=== PATIENT | female | born 1990 | race American Indian/Alaskan Native ===

== ENCOUNTER 2017-06-03 11:26 | Day surgery (SDC) | payer OTHER ==
[2017-05-31 09:14] VITALS: BMI 31.8
[2017-06-03] MEDS ORDERED: Propofol 10 mg/ml Inj (20 ML) ONE ×2 (12:51→13:09)
[2017-06-03] MEDS ORDERED: ePHEDrine 50 mg/ml Inj ONE (13:07)
[2017-06-03 13:46] VITALS: O2SAT 98
[2017-06-03] MEDS ORDERED: Sodium Chloride 0.9% 1,000 ML IV SCH (14:15)
[2017-06-03 14:37] VITALS: BP 118/53; PULSE 65; RESP 16; TEMP 98.5
== END 2017-06-03 14:53 | disposition home or self-care (01) ==
LOC: ENDO 11:26
PROVIDERS: ATTEND Internal Medicine Gastroenterology
DX: K29.50 Unspecified chronic gastritis without bleeding (principal); K44.9 Diaphragmatic hernia without obstruction or gangrene
CPT/HCPCS: 43239; 84703; 88305; 88312; 88342; J2001; J2704; J3010; J7040 ×2

== ENCOUNTER 2018-02-16 17:07 | Inpatient (IN) | payer OTHER ==
[2018-02-16] MEDS ORDERED: Dextrose 50% SYRINGE Inj (50 ml) IVP ONE (17:33)
--- NOTE | 2018-02-16 17:35 | ED PDOC ---
Arrival/HPI - General Time Seen by Provider: 02/16/18 17:20 Historian: Patient, Family - History of Present Illness Narrative History of Present Illness (Text): 02/16/18 17:30 A 27 year old female, whose past medical history includes pulmonary hypertension , presents to the emergency department complaining of dizziness. Patient reports waking up today in normal state. States not eating breakfast this morning, however after eating lunch today, patient began experiencing dizziness suddenly. Symptom worsens with head movement. Notes recently returning from [place] 3 days ago. Also, it is noted patient's blood pressure was found to be low, and patient mentions never having issues with blood pressure. patient mentions taking Prednisone 5 mg daily. Patient's current BP is 114/76. PMD: Dr. Tran Past Medical History - Provider Review Nursing Documentation Reviewed: Yes - Travel History Have you recently traveled outside [place] w/in the past 3 mons?: Yes If Yes, travel location?: [place] - Tetanus Immunization Tetanus Immunization: Unknown - Cardiac Hx Pacemaker: No - Pulmonary Hx Respiratory Disorders: Yes (pulmonary hypertension) Hx Pneumonia: Yes (2 years) Other/Comment: scleraderma lungs - Neurological Hx Paralysis: No - Endocrine/Metabolic Hx Endocrine Disorders: Yes Hx Systemic Lupus Erythematosus: Yes Other/Comment: connective tissue disorder - Hematological/Oncological Hx Blood Transfusions: No - Integumentary Hx Dermatological Disorder: Yes Other/Comment: raynauds syndrome, sjorgen - Musculoskeletal/Rheumatological Hx Musculoskeletal Disorders: Yes (joint pain) - Gastrointestinal Hx Gastrointestinal Disorders: Yes Hx Gastroesophageal Reflux: Yes HX Swallowing Problems: Yes - Psychiatric Hx Emotional Abuse: No Hx Physical Abuse: No Hx Substance Use: No - Past Surgical History Past Surgical History: No Previous - Surgical History Hx Appendectomy: Yes - Anesthesia Hx Anesthesia Reactions: No Hx Malignant Hyperthermia: No - Suicidal Assessment Feels Threatened In Home Enviroment: No Family/Social History - Physician Review Nursing Documentation Reviewed: Yes Family/Social History: Hypertension Smoking Status: Never Smoked Hx Alcohol Use: Yes (SOCIALLY) Hx Substance Use: No Hx Substance Use Treatment: No Allergies/Home Meds Allergies/Adverse Reactions: Allergies No Known Allergies Allergy (Verified 02/16/18 17:18) Home Medications: Home Meds Medication Instructions Recorded Confirmed Hydroxychloroquine Sulfate 400 mg PO DAILY 11/05/14 06/03/17 [Plaquenil] Meloxicam [Mobic] 7.5 mg PO BID PRN 11/05/14 06/03/17 Mycophenolate Mofetil [Cellcept] 500 mg PO TID 01/05/17 06/03/17 Omeprazole 20 mg PO DAILY 01/05/17 06/03/17 Prednisone 5 mg PO DAILY 01/05/17 06/03/17 Fluoxetine HCl [Prozac] 40 mg PO DAILY 05/31/17 06/03/17 Nifedipine [Procardia] 20 mg PO DAILY 05/31/17 06/03/17 Review of Systems - Review of Systems Constitutional: absent: Fatigue, Fevers Eyes: absent: Vision Changes ENT: absent: Hearing Changes Respiratory: absent: SOB, Cough Cardiovascular: absent: Chest Pain Gastrointestinal: absent: Abdominal Pain, Nausea Genitourinary Female: absent: Dysuria, Frequency Musculoskeletal: absent: Back Pain, Neck Pain Skin: absent: Rash Neurological: Dizziness. absent: Headache, Focal Weakness, Gait Changes, Speech Changes, Facial Droop Endocrine: absent: Polyuria Hemo/Lymphatic: absent: Easy Bleeding Psychiatric: absent: Depression Physical Exam - Physical Exam Narrative Physical Exam (Text): Head: Atraumatic. Normocephalic. Eyes: PERRL. EOMI. Conjunctivae are not pale. ENT: Mucous membranes are moist and intact. Oropharynx is clear and symmetric. No edema or exudates. Neck: Supple. Full ROM. No JVD. No lymphadenopathy. Cardiovascular: Regular rate. Regular rhythm. No murmurs, rubs, or gallops. Distal pulses are 2+ and symmetric. Pulmonary/Chest: No evidence of respiratory distress. Clear to auscultation bilaterally. No wheezing, rales or rhonchi. Abdominal: Soft and non-distended. There is no tenderness. No rebound, guarding, or rigidity. No organomegaly. Good bowel sounds. Back: No CVA tenderness. Extremities: No edema. No cyanosis. No clubbing. Full range of motion in all extremities. No calf tenderness. Skin: Skin is warm and dry. No petechiae. No purpura. Neurological: Alert, awake, and oriented to person, place, time, and situation. Normal speech. No facial droop. No pronator drift. No focal weakness. Patient with spinning sensation when rotating head to left or right, improved when staying still. No sensory deficits. Psychiatric: Good eye contact. Normal interaction, affect, and behavior. Vital Signs Reviewed: Yes Vital Signs Temp Pulse Resp BP Pulse Ox 02/16/18 17:39 98.2 F 63 18 114/76 100 Temperature: Afebrile Pulse: Regular Respiratory Rate: Normal Appearance: Positive for: Uncomfortable Pain Distress: Mild Mental Status: Positive for: Alert and Oriented X 3 Finger Stick Blood Glucose: 30 Medical Decision Making ED Course and Treatment: 02/16/18 17:30 Impression: 27 year old female with sudden onset of dizziness. Differential Diagnosis included but are not limited to: Vertigo vs. Hyoglycemia vs. Pulmonary Hypertension Plan: -- EKG -- Chest X-ray -- Labs -- Antivert -- D50 -- Urinalysis -- Reassess and disposition Progress Notes: Patient on intial exam denies fever, denies headache, denies chest pain or shortness of breath. She has hx of raynaud's and pulmonary hypertension, although denies any recent illnesses and states that she felt her typical self this AM and did eat something for lunch. Symptoms described as acute onset, and on exam it is positional. Of note, she is hypoglycemic. She is NOT diabetic. There has been no recent change in her medication, specifically her predniosone. She denies taking any new medication. 02/16/18 19:26 Patient feels less dizzy after being given Antivert. However symptoms continue to persist. Patient received amp of d50. Recheck of blood sugar reads 59. Patient denies taking any insulin, or any diabetic related medications, and has had no change in steroid dose as prescribed. Patient denies any fever/chills. Patient recommended to be admitted based on persistent hypoglycemia. Patient desires to be further monitored in the ER. I have reviewed case with Dr. Tran, patient's PMD. Will continue serial exams in the ED. UTI noted, although patient denies urinary symptoms. She is afebrile. Denies abdominal or back pain. WBC unremarkable. Not tachycardic or hypotensive. 02/16/18 22:15 Re-exam, patient with dizziness, worse with position. Additional antivert ordered. 02/16/18 23:10 Re-exam, positional dizziness persists. No facial droop. No slurred speech. Nasal congestion noted on exam. TMs clear. Lungs clear. No pharyngeal erythema. Will admit for observation, serial exams, D5 .45 ns fluid continued, recommend accuchecks given intermittent hypoglycemia. - Lab Interpretations Lab Results: 02/16/18 18:11 02/16/18 18:11 Lab Results 02/16/18 19:06: POC Glucose (mg/dL) 59 L 02/16/18 18:11: Sodium 141, Potassium 4.1, Chloride 105, Carbon Dioxide 27, Anion Gap 14, BUN 6 L, Creatinine 0.5 L, Est GFR ( Amer) > 60, Est GFR ( Non-Af Amer) > 60, Random Glucose 92, Calcium 9.7, Total Bilirubin 0.2, AST 27, ALT 16, Alkaline Phosphatase 50, Lactate Dehydrogenase 442, Total Creatine Kinase 44, Troponin I < 0.01, Total Protein 7.8, Albumin 4.2, Globulin 3.7, Albumin/Globulin Ratio 1.1 02/16/18 18:11: PT 13.8 H, INR 1.21 H, APTT 34.2 02/16/18 18:11: WBC 6.0 D, RBC 3.93, Hgb 10.3 L, Hct 33.7 L, MCV 85.8, MCH 26.2 , MCHC 30.6 L, RDW 13.7, Plt Count 500 H, MPV 9.2, Gran % 62.5, Lymph % (Auto) 27.3, [place] % (Auto) 8.9 H, Eos % (Auto) 1.3 L, Baso % (Auto) 0.0, Gran # 3.73, Lymph # (Auto) 1.6, [place] # (Auto) 0.5, Eos # (Auto) 0.1, Baso # (Auto) 0.00 02/16/18 18:08: Urine Color Light yellow, Urine Appearance Sl cloudy, Urine pH 7.5, Ur Specific [place] 1.010, Urine Protein Negative, Urine Glucose (UA) Negative, Urine Ketones Negative, Urine Blood Moderate H, Urine Nitrate Negative , Urine Bilirubin Negative, Urine Urobilinogen 0.2, Ur Leukocyte Esterase Small H, Urine RBC 0 - 2, Urine WBC 1 - 3, Ur Epithelial Cells 3 - 4, Urine Bacteria Mod 02/16/18 17:52: POC Glucose (mg/dL) 79 02/16/18 17:18: POC Glucose (mg/dL) 30 L* - RAD Interpretation Radiology Orders: 02/16/18 17:32 CHEST PORTABLE [RAD] Stat - EKG Interpretation EKG Interpretation (Text): EKG at 17:47 normal sinus rhythm rate of [address] elevations Interpreted by ED Physician: Yes Type: 12 lead EKG - Medication Orders Current Medication Orders: Dextrose/Sodium Chloride (Dextrose 5%/0.45% Ns 1000 Ml) 1,000 mls @ 100 mls/hr IV .Q10H AGUSTIN Last Admin: 02/16/18 19:47 Dose: 100 mls/hr eMAR Start Stop Document 02/16/18 19:47 IT (Rec: 02/16/18 19:47 IT [id number]) Intravenous Solution Start Date 02/16/18 Start Time 19:47 Discontinued Medications Dextrose (Dextrose 50% Inj) 50 ml IVP ONCE ONE Stop: 02/16/18 17:34 Last Admin: 02/16/18 18:11 Dose: 50 ml IVP Administration Document 02/16/18 18:11 OCS (Rec: 02/16/18 18:11 OCS [id number]) Charges for Administration # of IVP Administrations 1 Meclizine HCl (Antivert) 25 mg PO ONCE ONE Stop: 02/16/18 17:34 Last Admin: 02/16/18 18:11 Dose: 25 mg Meclizine HCl (Antivert) 25 mg PO ONCE ONE Stop: 02/16/18 22:15 Last Admin: 02/16/18 22:40 Dose: 25 mg - Scribe Statement The provider has reviewed the documentation as recorded by the Conor Palma Provider Scribe Attestation: All medical record entries made by the Conor were at my direction and personally dictated by me. I have reviewed the chart and agree that the record accurately reflects my personal performance of the history, physical exam, medical decision making, and the department course for this patient. I have also personally directed, reviewed, and agree with the discharge instructions and disposition. Disposition/Present on Arrival - Present on Arrival Any Indicators Present on Arrival: Yes History of DVT/PE: No History of Uncontrolled Diabetes: Yes Urinary Catheter: No History Surgical Site Infection Followin - Disposition Have Diagnosis and Disposition been Completed?: Yes Diagnosis: Hypoglycemia, Dizziness, UTI (urinary tract infection), Sinusitis, Vertigo Disposition: HOSPITALIZED Disposition Time: 20:21 Patient Plan: Observation Patient Problems: Current Active Problems Problem Status Onset Dizziness Acute Hypoglycemia Acute Condition: FAIR Referrals: Morales Tran MD [Primary Care Provider] - Follow up with primary
[2018-02-16 17:36] VITALS: BMI 27.6
[2018-02-16 18:25] LABS: EOS # 0.1 (0.0-0.7); EOS % 1.3 % (1.5-5.0); GRAN # 3.73 (1.4-6.5); GRAN % 62.5 % (50.0-68.0); HEMOGLOBIN 10.3 g/dL (12.0-16.0); LYMPH # 1.6 (1.2-3.4); LYMPH % 27.3 % (22.0-35.0); MEAN CELL VOLUME 85.8 fl (80.0-105.0); MEAN CORPUSCULAR HEMOGLOBIN 26.2 pg (25.0-35.0); MEAN CORPUSCULAR HGB CONC 30.6 g/dl (31.0-37.0); MEAN PLATELET VOLUME 9.2 fl (7.0-11.0); MONO # 0.5 (0.1-0.6); MONO % 8.9 % (1.0-6.0); RBC 3.93 10^6/uL (3.5-6.1); RED CELL DISTRIBUTION WIDTH 13.7 % (11.5-14.5)
[2018-02-16 18:28] LABS: PH,URINE 7.5 (4.7-8.0); URINE BILIRUBIN NEGATIVE (NEGATIVE); URINE BLOOD MODERATE (NEGATIVE); URINE GLUCOSE (UA) NEGATIVE (NEGATIVE); URINE LEUKOCYTE ESTERASE SMALL Leu/uL (NEGATIVE); URINE PROTEIN NEGATIVE mg/dL (<30 mg/dL); URINE UROBILINOGEN 0.2 E.U./dL (<1 E.U./dL)
[2018-02-16 18:28] LABS: INR 1.21 (0.93-1.08); PARTIAL THROMBOPLASTIN TIME 34.2 Seconds (25.1-36.5); PROTHROMBIN TIME 13.8 SECONDS (9.4-12.5)
[2018-02-16 18:30] LABS: URINE APPEARANCE SL CLOUDY (CLEAR); URINE COLOR LIGHT YELLOW (YELLOW)
[2018-02-16 18:31] LABS: ALB/GLOB RATIO 1.1 (1.1-1.8); ALBUMIN 4.2 g/dL (3.0-4.8); ALT/SGPT 16 U/L (7-56); AST/SGOT 27 U/L (14-36); BLOOD UREA NITROGEN 6 mg/dL (7-21); CALCIUM 9.7 mg/dL (8.4-10.5); GFR AFRICAN-AMERICAN > 60; GFR NON-AFRICAN AMERICAN > 60
[2018-02-16 18:35] LABS: URINE BACTERIA MOD (NEG); URINE RBC 0 - 2 /hpf (0-2)
[2018-02-16 18:42] LABS: TROPONIN I < 0.01 ng/mL
[2018-02-16] MEDS: Dextrose 5%/0.45% NS 1,000 ML IV SCH (19:47)
[2018-02-16] MEDS ORDERED: Amoxicillin-Clav 875-125 mg Tab PO STA (23:13)
--- NOTE | 2018-02-17 00:50 | CP.PCM.HP ---
<KathleenAdele - Last Filed: 02/17/18 05:13> History of Present Illness - History of Present Illness History of Present Illness: Adele Wang, PGY1, H&P for Dr Flores: CC: dizziness 27 year old female, whose past medical history includes mixed connective tissue disease, SLE, pulmonary hypertension, presents for sudden onset of dizziness that started this afternoon. Pt was at at her desk, sitting, when she suddenly started feeling dizzy, sees "herself spinning," worsened by head position changes. Denies fever, chills, diaphoresis, palpitaitons, confusion, drowsiness , inability to concentrate/incoordination, fatigue, vision changes, headache, nausea, vomiting, hearing loss/changes, tinnitus, abdominal pain, urinary symptoms, alcohol/drug use, tremors, irritability, tachypnea, pallor, hunger. In ED, pt was also found to be hypoglycemic BS 30, given amp D50. Then started on D5 1/2 NS@100. Dizziness resolved after 2 doses of Meclizine. Trop negx1. 12 point ROS obtained and neg, except as per HPI. PMD: Dr. Tran PMH: Raynaud's, Pulm HTN, mixed connective tissue disease, scleroderma of lungs , SLE PSH: appendectomy (2015) All: NKA FH: Grandmother, HTN, DM Mother, RA SH: lives with roommate. 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 Denies alcohol/tobacco/ drug use. Ambulatory by self. Recent travel to [place], returned 3 days ago. No sick contacts. Present on Admission - Present on Admission Any Indicators Present on Admission: No History of DVT/PE: No History of Uncontrolled Diabetes: No Urinary Catheter: No Decubitus Ulcer Present: No Review of Systems - Review of Systems All systems: reviewed and no additional remarkable complaints except Review of Systems: as per HPI Past Patient History - Infectious Disease Hx of Infectious Diseases: None - Tetanus Immunizations Tetanus Immunization: Unknown - Past Medical History & Family History Past Medical History?: Yes - Past Social History Smoking Status: Never Smoked - CARDIAC Hx Pacemaker: No - PULMONARY Hx Respiratory Disorders: Yes (pulmonary hypertension) Hx Pneumonia: Yes (2 years) Other/Comment: scleraderma lungs - NEUROLOGICAL Hx Paralysis: No - ENDOCRINE/METABOLIC Hx Endocrine Disorders: Yes Hx Systemic Lupus Erythematosus: Yes Other/Comment: connective tissue disorder - HEMATOLOGICAL/ONCOLOGICAL Hx Blood Transfusions: No - INTEGUMENTARY Hx Dermatological Problems: Yes Other/Comment: raynauds syndrome, sjorgen - MUSCULOSKELETAL/RHEUMATOLOGICAL Hx Musculoskeletal Disorders: Yes (joint pain) - GASTROINTESTINAL Hx Gastrointestinal Disorders: Yes Hx Gastroesophageal Reflux: Yes HX Swallowing Problems: Yes - PSYCHIATRIC Hx Emotional Abuse: No Hx Physical Abuse: No Hx Substance Use: No - SURGICAL HISTORY Hx Appendectomy: Yes - ANESTHESIA Hx Anesthesia Reactions: No Hx Malignant Hyperthermia: No Meds Allergies/Adverse Reactions: Allergies Allergy/AdvReac Type Severity Reaction Status Date / Time No Known Allergies Allergy Verified 02/16/18 17:18 Physical Exam - Constitutional Appears: Non-toxic, No Acute Distress - Head Exam Head Exam: ATRAUMATIC, NORMOCEPHALIC - Eye Exam Eye Exam: EOMI, Nystagmus, PERRL. absent: Conjunctival injection, Scleral icterus Pupil Exam: NORMAL ACCOMODATION, PERRL. absent: Fixed, Irregular, Miosis, Mydriatic, Unequal Additional comments: Kendrick wiggins pike maneuver positive with spontaneous nystagmus. Annika maneuver performed. - ENT Exam ENT Exam: Mucous Membranes Moist - Neck Exam Neck exam: Positive for: Full Rom Additional comments: + no nystagmus currently noted with position changes - Respiratory Exam Respiratory Exam: Clear to Auscultation Bilateral, NORMAL BREATHING PATTERN. absent: Chest Wall Tenderness, Rales, Rhonchi, Wheezes, Stridor - Cardiovascular Exam Cardiovascular Exam: RRR, +S1, +S2. absent: Systolic Murmur - GI/Abdominal Exam GI & Abdominal Exam: Normal Bowel Sounds, Soft. absent: Distended, Firm, Guarding, Organomegaly, Rebound, Rigid, Tenderness - Extremities Exam Extremities exam: Positive for: normal inspection. Negative for: calf tenderness, pedal edema - Back Exam Back exam: NORMAL INSPECTION - Neurological Exam Neurological exam: Alert, CN II-XII Intact, Normal Gait, Oriented x3, Reflexes Normal - Expanded Neurological Exam Expanded Patient oriented to: person, place, time Cranial nerves: EOM's Intact: Normal, Facial Palsey w/Forehead Movement: Normal , Facial Palsey w/o Forehead Movement: Normal, Facial Sensation: Normal, Gag Reflex: Normal, Nystagmus: Abnormal Right, Abnormal Left, Tongue Deviation: Normal Ataxia: No Cerebellar Function: Finger to Nose: Normal, Heel to [place]: Normal, Romberg: Normal Upper motor neuron: Babinski Sign: Normal, Felipe Neglect: Normal, Pronator Drift : Normal Sensory exam: Lower Extremity 2 Point Discrimination: Normal, Lower Extremity Light Touch: Normal, Lower Extremity Pin Prick: Normal, Upper Extremity Light Touch: Normal, Upper Extremity Pin Prick: Normal, Upper Extremity Temperature: Normal Neuro motor strength exam: Left Upper Extremity: 5, Right Upper Extremity: 5, Left Lower Extremity: 5, Right Lower Extremity: 5 DTR: Achilles Tendon Left: 2+, Achilles Tendon Right: 2+, Bicep Left: 2+, Bicep Right: 2+, Patellar Left: 2+, Patellar Right: 2+, Tricep Left: 2+, Tricep Right : 2+ Coma Scale Eye Opening: SPONTANEOUS Coma Scale Motor Response: OBEYS COMMANDS Coma Scale Verbal: Oriented Coma Scale Total: 15 - Psychiatric Exam Psychiatric exam: Normal Affect, Normal Mood - Skin Skin Exam: Dry, Normal Color, Warm Additional comments: No mottled skin, diaphoresis Results - Vital Signs Recent Vital Signs: Last Vital Signs Temp 98.2 F 02/16/18 17:39 Pulse 63 02/16/18 17:39 Resp 18 02/16/18 17:39 BP 114/76 02/16/18 17:39 Pulse Ox 100 02/16/18 17:39 - Labs Result Diagrams: 02/16/18 18:11 02/16/18 18:11 Assessment & Plan - Assessment and Plan (Free Text) Assessment: 27 year old female with hx of mixed connective tissue disease, SLE, Raynaud's, pulm HTN, presents for dizziness and hypoglycemia: Hypoglycemia: 2/2 medication induced (hydroxychloroquine, prozac) vs inadequate PO intake vs insulinoma vs insulin autoimmune hypoglycemia vs insulin secretagogue, ruled out drugs (pt denies insulin/alcohol use), sepsis - D5 1/2 NS @ 100 - Glucose check ACHS - insulin, proinsulin, C peptide, beta hydroxybutyrate - Endo consult. f/u recs - UA + for infection. Given Rocephin. Dizziness: 2/2 BPPV vs medication induced (hydroxychloroquine, prozac, nifedipine) vs SKI LIFT ATTENDANT lesion (chiari malformation, cerebellar tumor, degenerative disorder) vs autonomic vs orthostatic - Orthostatic VS - Meclizine - Positive Kendrick hallpike. Annika's maneuver done. - Consider vestibulosuppresant medication: Diazepam - Head CT - Neuro c/s. f/u recs. - Consider Vestibular rehab, possibly outpatient - Fall precautions - Neuro check - Hold prozac, hydroxychloroquine) Hx of Mixed connective tissue disease/SLE: - c/w home prednisone 5 mg PO daily - C/w home mycophenolate, meloxicam Hx of Raynaud's/Pulm HTN: - home home nifedipine in setting of dizziness PPX: Pepcid, SCDs Discussed with Dr Flores. - Date & Time Date: 02/17/18 Time: 05:29 <Richard Flores - Last Filed: 02/17/18 06:52> Results - Vital Signs Recent Vital Signs: Last Vital Signs Temp 98.2 F 02/16/18 17:39 Pulse 63 02/16/18 17:39 Resp 18 02/17/18 02:05 BP 114/76 02/16/18 17:39 Pulse Ox 100 02/16/18 17:39 - Labs Result Diagrams: 02/16/18 18:11 02/16/18 18:11 Labs: Laboratory Results - last 24 hr 02/17/18 02/17/18 00:57 06:30 POC Glucose (mg/dL) 137 H 88 Attending/Attestation - Attestation I have personally seen and examined this patient.: Yes I have fully participated in the care of the patient.: Yes I have reviewed all pertinent clinical information: Yes Notes (Text): 02/17/18 06:51 Patient was seen when she was in bed # 4 in the ER. Agree with history, physical examination, assessment and plan.
[2018-02-17] MEDS: Dextrose 5%/0.45% NS 1,000 ML IV SCH (04:30)
[2018-02-17 07:02] LABS: BASO # 0.01 K/mm3 (0.0-2.0); BASO % 0.1 % (0.0-3.0); EOS # 0.1 (0.0-0.7); GRAN # 5.87 (1.4-6.5); GRAN % 76.1 % (50.0-68.0); HEMOGLOBIN 10.3 g/dL (12.0-16.0); LYMPH # 1.1 (1.2-3.4); LYMPH % 14.8 % (22.0-35.0); MEAN CELL VOLUME 85.5 fl (80.0-105.0); MEAN CORPUSCULAR HEMOGLOBIN 26.3 pg (25.0-35.0); MEAN CORPUSCULAR HGB CONC 30.7 g/dl (31.0-37.0); MEAN PLATELET VOLUME 9.2 fl (7.0-11.0); MONO # 0.6 (0.1-0.6); RBC 3.92 10^6/uL (3.5-6.1); RED CELL DISTRIBUTION WIDTH 13.9 % (11.5-14.5); WHITE BLOOD COUNT 7.7 10^3/ul (4.5-11.0)
[2018-02-17 07:17] LABS: ALB/GLOB RATIO 1.1 (1.1-1.8); ALBUMIN 3.8 g/dL (3.0-4.8); ALT/SGPT 20 U/L (7-56); AST/SGOT 22 U/L (14-36); BLOOD UREA NITROGEN 5 mg/dL (7-21); CALCIUM 9.2 mg/dL (8.4-10.5); GFR AFRICAN-AMERICAN > 60; GFR NON-AFRICAN AMERICAN > 60
--- NOTE | 2018-02-17 09:04 | RAD ---
HISTORY: sob COMPARISON: 12/24/2015 FINDINGS: LUNGS: No active pulmonary disease. PLEURA: No significant pleural effusion identified, no pneumothorax apparent. CARDIOVASCULAR: Normal. OSSEOUS STRUCTURES: No significant abnormalities. VISUALIZED UPPER ABDOMEN: Normal. OTHER FINDINGS: None. IMPRESSION: No active disease.
--- NOTE | 2018-02-17 09:13 | CT ---
PROCEDURE: CT HEAD WITHOUT CONTRAST. HISTORY: new onset dizziness COMPARISON: None available. TECHNIQUE: Axial computed tomography images were obtained through the head/brain without intravenous contrast. Radiation dose: Total exam DLP = 861 mGy-cm. This CT exam was performed using one or more of the following dose reduction techniques: Automated exposure control, adjustment of the mA and/or kV according to patient size, and/or use of iterative reconstruction technique. FINDINGS: HEMORRHAGE: No intracranial hemorrhage. BRAIN: No mass effect or edema. No atrophy or chronic microvascular ischemic changes. VENTRICLES: Unremarkable. No hydrocephalus. CALVARIUM: Unremarkable. PARANASAL SINUSES: Unremarkable as visualized. No significant inflammatory changes. MASTOID AIR CELLS: Unremarkable as visualized. No inflammatory changes. OTHER FINDINGS: None. IMPRESSION: No acute findings
[2018-02-17] MEDS: cefTRIAXone 1 gm 1 GM/100 ML BAG IVPB SCH (09:22)
--- NOTE | 2018-02-17 12:45 | CARD ---
APPROVED REPORT EKG Measurement Heart [id number] <Conclusion> Normal sinus rhythm Normal ECG
--- NOTE | 2018-02-17 14:43 | CP.PCM.CON ---
<OzielJoanna - Last Filed: 02/17/18 14:48> History of Present Illness - History of Present Illness History of Present Illness: Neurology Consult Note - Dr. Underwood 27 AA F with a PMHx of SLE, pulmonary hypertension, presents for sudden onset of dizziness that started yesterday afternoon while at work. Pt states that it was an acute onset of dizziness that worsened with positional changes prompting her to seek medical attention. She stated she felt a sensation of herself spinning. Pt denied any feelings of dizziness at rest, only when she moves her head. Pt was seen and examined at bedside with family present. No acute complaints at this time. Pt is tolerating po intake and moving bowels and bladder regularly. Denies fever, chills, diaphoresis, palpitaitons, confusion, drowsiness, inability to concentrate/incoordination, fatigue, vision changes, headache, nausea, vomiting, hearing loss/changes, tinnitus, abdominal pain, urinary symptoms, alcohol/drug use, tremors, irritability, tachypnea, pallor, hunger. PMHx: Raynaud's, Pulm HTN, mixed connective tissue disease, scleroderma of lungs , SLE PSHx: appendectomy (2014) SHx: Denies alcohol/tobacco/drug use.[place]: HTN, DM, RA Meds: hydroxychloriquine, predisone, mycophenolate, meloxicam, nefedipine, breo , fluoxetine Allergies: NKDA Review of Systems - Review of Systems Review of Systems: as per HPI otherwise negative Past Patient History - Infectious Disease Hx of Infectious Diseases: None - Tetanus Immunizations Tetanus Immunization: Unknown - Past Medical History & Family History Past Medical History?: Yes - Past Social History Smoking Status: Never Smoked - CARDIAC Hx Pacemaker: No - PULMONARY Hx Respiratory Disorders: Yes (pulmonary hypertension) Hx Pneumonia: Yes (2 years) Other/Comment: scleraderma lungs - NEUROLOGICAL Hx Paralysis: No - ENDOCRINE/METABOLIC Hx Endocrine Disorders: Yes Hx Systemic Lupus Erythematosus: Yes Other/Comment: connective tissue disorder - HEMATOLOGICAL/ONCOLOGICAL Hx Blood Transfusions: No - INTEGUMENTARY Hx Dermatological Problems: Yes Other/Comment: raynauds syndrome, sjorgen - MUSCULOSKELETAL/RHEUMATOLOGICAL Hx Musculoskeletal Disorders: Yes (joint pain) - GASTROINTESTINAL Hx Gastrointestinal Disorders: Yes Hx Gastroesophageal Reflux: Yes HX Swallowing Problems: Yes - PSYCHIATRIC Hx Emotional Abuse: No Hx Physical Abuse: No Hx Substance Use: No - SURGICAL HISTORY Hx Appendectomy: Yes - ANESTHESIA Hx Anesthesia Reactions: No Hx Malignant Hyperthermia: No Meds Allergies/Adverse Reactions: Allergies Allergy/AdvReac Type Severity Reaction Status Date / Time No Known Allergies Allergy Verified 02/16/18 17:18 - Medications Medications: Current Medications Diazepam (Valium) 2 mg PO Q12H PRN; Protocol PRN Reason: Dizziness Famotidine (Pepcid) 40 mg PO HS AGUSTIN Dextrose/Sodium Chloride (Dextrose 5%/0.45% Ns 1000 Ml) 1,000 mls @ 100 mls/hr IV .Q10H AGUSTIN Last Admin: 02/17/18 04:30 Dose: 100 mls/hr Ceftriaxone Sodium (Rocephin 1 Gram Ivpb) 1 gm in 100 mls @ 100 mls/hr IVPB DAILY AGUSTIN PRN Reason: Protocol Last Admin: 02/17/18 09:22 Dose: Not Given Meclizine HCl (Antivert) 25 mg PO Q6H PRN PRN Reason: Dizziness Physical Exam - Constitutional Appears: No Acute Distress - Head Exam Head Exam: ATRAUMATIC, NORMAL INSPECTION, NORMOCEPHALIC - Eye Exam Eye Exam: EOMI, Normal appearance, PERRL Pupil Exam: NORMAL ACCOMODATION, PERRL - ENT Exam ENT Exam: Mucous Membranes Moist, Normal Exam - Neck Exam Neck exam: Positive for: Normal Inspection - Respiratory Exam Respiratory Exam: Clear to Auscultation Bilateral, NORMAL BREATHING PATTERN - Cardiovascular Exam Cardiovascular Exam: REGULAR RHYTHM, +S1, +S2 - GI/Abdominal Exam GI & Abdominal Exam: Normal Bowel Sounds, Soft. absent: Tenderness - Extremities Exam Extremities exam: Positive for: normal inspection - Back Exam Back exam: NORMAL INSPECTION - Neurological Exam Neurological exam: Alert, CN II-XII Intact, Normal Gait, Oriented x3, Reflexes Normal - Psychiatric Exam Psychiatric exam: Normal Affect, Normal Mood - Skin Skin Exam: Dry, Intact, Normal Color, Warm Results - Vital Signs Recent Vital Signs: Last Vital Signs Temp 98 F 02/17/18 08:03 Pulse 78 02/17/18 08:03 Resp 20 02/17/18 08:03 BP 105/62 02/17/18 08:03 Pulse Ox 98 02/17/18 08:03 - Labs Result Diagrams: 02/17/18 06:40 02/17/18 06:40 Labs: Laboratory Results - last 24 hr 02/17/18 02/17/18 02/17/18 00:57 06:30 06:40 WBC 7.7 D RBC 3.92 Hgb 10.3 L Hct 33.5 L MCV 85.5 MCH 26.3 MCHC 30.7 L RDW 13.9 Plt Count 468 H MPV 9.2 Gran % 76.1 H Lymph % (Auto) 14.8 L Mathews % (Auto) 8.0 H Eos % (Auto) 1.0 L Baso % (Auto) 0.1 Gran # 5.87 Lymph # (Auto) 1.1 L Mathews # (Auto) 0.6 Eos # (Auto) 0.1 Baso # (Auto) 0.01 Sodium Potassium Chloride Carbon Dioxide Anion Gap BUN Creatinine Est GFR ( Amer) Est GFR (Non-Af Amer) POC Glucose (mg/dL) 137 H 88 Random Glucose Calcium Total Bilirubin AST ALT Alkaline Phosphatase Total Protein Albumin Globulin Albumin/Globulin Ratio TSH 3rd Generation 02/17/18 02/17/18 06:40 06:40 WBC RBC Hgb Hct MCV MCH MCHC RDW Plt Count MPV Gran % Lymph % (Auto) Mathews % (Auto) Eos % (Auto) Baso % (Auto) Gran # Lymph # (Auto) Mathews # (Auto) Eos # (Auto) Baso # (Auto) Sodium 143 Potassium 4.0 Chloride 106 Carbon Dioxide 27 Anion Gap 15 BUN 5 L Creatinine 0.5 L Est GFR ( Amer) > 60 Est GFR (Non-Af Amer) > 60 POC Glucose (mg/dL) Random Glucose 98 Calcium 9.2 Total Bilirubin 0.2 AST 22 ALT 20 Alkaline Phosphatase 46 Total Protein 7.3 Albumin 3.8 Globulin 3.5 Albumin/Globulin Ratio 1.1 TSH 3rd Generation 3.09 Assessment & Plan - Assessment and Plan (Free Text) Assessment: 27 AA F with a PMHx of SLE, pulmonary hypertension, presents for sudden onset of dizziness admitted for likely BBPV. Positive laureano hallpike left side. Will recommend MRI brain for further assessment. Also will recommend adding valium 2mg q12 instead of meclizine for vestibular suppressant. Continue medical management for UTI, and continue home meds. Pt will need to followup with neurology outpatient . <Valerio Underwood - Last Filed: 02/17/18 15:26> Meds - Medications Medications: Current Medications Diazepam (Valium) 2 mg PO Q12H PRN; Protocol PRN Reason: Dizziness Famotidine (Pepcid) 40 mg PO HS AGUSTIN Dextrose/Sodium Chloride (Dextrose 5%/0.45% Ns 1000 Ml) 1,000 mls @ 100 mls/hr IV .Q10H AGUSTIN Last Admin: 02/17/18 04:30 Dose: 100 mls/hr Ceftriaxone Sodium (Rocephin 1 Gram Ivpb) 1 gm in 100 mls @ 100 mls/hr IVPB DAILY AGUSTIN PRN Reason: Protocol Last Admin: 02/17/18 09:22 Dose: Not Given Meclizine HCl (Antivert) 25 mg PO Q6H PRN PRN Reason: Dizziness Results - Vital Signs Recent Vital Signs: Last Vital Signs Temp 98 F 02/17/18 08:03 Pulse 78 02/17/18 08:03 Resp 20 02/17/18 08:03 BP 105/62 02/17/18 08:03 Pulse Ox 98 02/17/18 08:03 - Labs Result Diagrams: 02/17/18 06:40 02/17/18 06:40 Labs: Laboratory Results - last 24 hr 02/17/18 02/17/18 02/17/18 00:57 06:30 06:40 WBC 7.7 D RBC 3.92 Hgb 10.3 L Hct 33.5 L MCV 85.5 MCH 26.3 MCHC 30.7 L RDW 13.9 Plt Count 468 H MPV 9.2 Gran % 76.1 H Lymph % (Auto) 14.8 L Mathews % (Auto) 8.0 H Eos % (Auto) 1.0 L Baso % (Auto) 0.1 Gran # 5.87 Lymph # (Auto) 1.1 L Mathews # (Auto) 0.6 Eos # (Auto) 0.1 Baso # (Auto) 0.01 Sodium Potassium Chloride Carbon Dioxide Anion Gap BUN Creatinine Est GFR ( Amer) Est GFR (Non-Af Amer) POC Glucose (mg/dL) 137 H 88 Random Glucose Calcium Total Bilirubin AST ALT Alkaline Phosphatase Total Protein Albumin Globulin Albumin/Globulin Ratio TSH 3rd Generation 02/17/18 02/17/18 06:40 06:40 WBC RBC Hgb Hct MCV MCH MCHC RDW Plt Count MPV Gran % Lymph % (Auto) Mathews % (Auto) Eos % (Auto) Baso % (Auto) Gran # Lymph # (Auto) Mathews # (Auto) Eos # (Auto) Baso # (Auto) Sodium 143 Potassium 4.0 Chloride 106 Carbon Dioxide 27 Anion Gap 15 BUN 5 L Creatinine 0.5 L Est GFR ( Amer) > 60 Est GFR (Non-Af Amer) > 60 POC Glucose (mg/dL) Random Glucose 98 Calcium 9.2 Total Bilirubin 0.2 AST 22 ALT 20 Alkaline Phosphatase 46 Total Protein 7.3 Albumin 3.8 Globulin 3.5 Albumin/Globulin Ratio 1.1 TSH 3rd Generation 3.09 Attending/Attestation - Attestation I have personally seen and examined this patient.: Yes I have fully participated in the care of the patient.: Yes I have reviewed all pertinent clinical information: Yes
--- NOTE | 2018-02-17 17:18 | MRI ---
PROCEDURE: MRI BRAIN WITHOUT CONTRAST HISTORY: dizzy COMPARISON: None. TECHNIQUE: Multiplanar, multisequence MR images of the brain were obtained without intravenous contrast enhancement. FINDINGS: HEMORRHAGE: None DWI: No evidence of an acute or early subacute infarction. BRAIN PARENCHYMA: No mass effect or edema. No atrophy or chronic microvascular ischemic changes. VENTRICLES: Unremarkable. No hydrocephalus. CRANIUM: Unremarkable. ORBITS: Grossly unremarkable. PARANASAL SINUSES/MASTOIDS: Clear VASCULAR SYSTEM: Skull base flow voids intact. OTHER FINDINGS: None. IMPRESSION: Unremarkable non contrast enhanced MRI of the brain.
[2018-02-17 18:26] VITALS: RESP 18
[2018-02-17 22:42] VITALS: BP 95/57; PULSE 93; TEMP 98.9; O2SAT 99
--- NOTE | 2018-02-18 07:49 | CON ---
DATE: ENDOCRINOLOGY CONSULTATION LOCATION: Room 578. HISTORY OF PRESENT ILLNESS: This is a 27-year-old female with known history of SLE of systemic lupus and mixed connective tissue disease, presenting here with sudden onset of progressively worsening dizziness and lightheadedness and associated diaphoresis with associated marked hypoglycemia and the glucose level of 30 mg/dL in the emergency room and was given D50 bolus injections and dextrose infusion thereof with remarkable relief both clinically and metabolically as noted. She is being referred now for endocrine evaluation and management. PAST MEDICAL HISTORY: As mentioned above, history of systemic lupus and mixed connective tissue disease and there is given a mention of possible Sjogren disease and is currently on hydroxychloroquine or Plaquenil at 400 mg once daily. She is also on immunotherapy currently on CellCept given as 500 mg t.i.d. There is also mention of pulmonary scleroderma with possible pulmonary hypertension and is being followed closely by Pulmonary also at this time and has been maintained on prednisone given as 5 mg once daily, history of generalized anxiety and depression, and is currently on Prozac given as 40 mg once daily. She has been also placed on Procardia at 20 mg daily for the underlying mixed connective tissue disease. FAMILY HISTORY: Positive for diabetes and hypertension. No known endocrinopathy at this time. REVIEW OF SYSTEMS: As mentioned above. Admits to sudden onset of progressively worsening dizziness and lightheadedness with generalized body weakness and suboptimal energy level. No chest pains or palpitations or PNDs. Admits, however, to occasional bouts of shortness of breath especially on exertion. Her oral intake has been variable, but otherwise improved with occasional dyspepsia as noted. No recent alterations of bowel and urinary patterns. PHYSICAL EXAMINATION: GENERAL: She is an average-built female, in no apparent distress. VITAL SIGNS: Blood pressure of 140/80, pulse of 70 beats per minute and regular, temperature 98, respirations 20, height is 4 feet 11 inches, weight is 167 pounds. HEENT: Head normocephalic. Eyes anicteric with pink conjunctivae. Funduscopy not possible at this time. Ears, nose and throat otherwise normal. NECK: Supple. Thyroid gland is normal in size. No carotid bruits or cervical adenopathy. CARDIOPULMONARY: Adynamic precordium. S1, S2 is rapid and regular. LUNGS: Clear to auscultation. ABDOMEN: Flat, soft with positive bowel sounds. EXTREMITIES: No peripheral edema. Pulses are +2 bilaterally. LABORATORY DATA: Her chemistry showed a BUN of 5, sodium 143, potassium 4, chloride 106, CO2 27, glucose 98 and creatinine 0.5. The initial glucose was 50 with a subsequent glucose of 59 mg/dL. TSH is 3.09. ASSESSMENT: This is a 27-year-old female with symptomatic hypoglycemia with associated hyperadrenergic and neuroglycopenic manifestations related to the same and with reversals from D50 bolus injections and dextrose infusion as given. The most likely etiology of the aforementioned will be the so called functional hypoglycemia either noted pre or postprandially and occasionally in the early mornings as noted. Although quite remote, but we also have to exclude the so-called insulin excess syndromes of either an insulinoma or paraganglioma and other rare neuroendocrine tumors as noted. With the significant history of mixed connective tissue disorders, there is also a quite common association with autoimmune endocrinopathies such as hypoadrenalism or adrenal insufficiency and/or hypothyroidism. PLAN OF MANAGEMENT: We will concur with the present comprehensive hormonal assays ordered on admission with a serum insulin and proinsulin with a C-peptide level as noted. We will also add a serum cortisol and ACTH levels to exclude underlying hypoadrenalism. Moreover, we will exclude a more remote neuroendocrine tumors such as serum gastrin and prolactin levels and also a plasma free metanephrines level as noted and ordered. We will highly encourage the so-called high protein, low-carb six frequent small feedings to prevent hyperinsulinemia and sudden symptomatic hypoglycemic episodes thereof. We will obtain serial chemistries and supplement accordingly needed. We will follow and advise accordingly. Faye Vang MD
[2018-02-18 08:45] LABS: BASO # 0.01 K/mm3 (0.0-2.0); BASO % 0.2 % (0.0-3.0); EOS # 0.2 (0.0-0.7); EOS % 2.8 % (1.5-5.0); GRAN # 3.25 (1.4-6.5); GRAN % 60.5 % (50.0-68.0); HEMOGLOBIN 10.5 g/dL (12.0-16.0); LYMPH # 1.4 (1.2-3.4); LYMPH % 25.7 % (22.0-35.0); MEAN CELL VOLUME 86.3 fl (80.0-105.0); MEAN CORPUSCULAR HEMOGLOBIN 26.2 pg (25.0-35.0); MEAN CORPUSCULAR HGB CONC 30.3 g/dl (31.0-37.0); MEAN PLATELET VOLUME 9.9 fl (7.0-11.0); MONO # 0.6 (0.1-0.6); MONO % 10.8 % (1.0-6.0); RBC 4.01 10^6/uL (3.5-6.1); RED CELL DISTRIBUTION WIDTH 13.9 % (11.5-14.5); WHITE BLOOD COUNT 5.4 10^3/ul (4.5-11.0)
[2018-02-18 08:58] LABS: ALB/GLOB RATIO 1.3 (1.1-1.8); ALT/SGPT 25 U/L (7-56); AST/SGOT 23 U/L (14-36); BLOOD UREA NITROGEN 7 mg/dL (7-21); CALCIUM 8.8 mg/dL (8.4-10.5); GFR AFRICAN-AMERICAN > 60; GFR NON-AFRICAN AMERICAN > 60
[2018-02-18] MEDS: cefTRIAXone 1 gm 1 GM/100 ML BAG IVPB SCH (10:40)
--- NOTE | 2018-02-18 12:23 | CP.PCM.DIS ---
Provider - Provider Date of Admission: 02/17/18 15:01 Attending physician: Joss Paul MD Primary care physician: Morales Tran MD Consults: Neurology: Dr. Underwood Endocrinology: Dr. Vang Time Spent in preparation of Discharge (in minutes): 40 Diagnosis - Discharge Diagnosis (1) Dizziness Status: Acute (2) Hypoglycemia Status: Acute Hospital Course - Lab Results Lab Results: Most Recent Lab Values WBC 5.4 10^3/ul (4.5-11.0) D 02/18/18 07:00 RBC 4.01 10^6/uL (3.5-6.1) 02/18/18 07:00 Hgb 10.5 g/dL (12.0-16.0) L 02/18/18 07:00 Hct 34.6 % (36.0-48.0) L 02/18/18 07:00 MCV 86.3 fl (80.0-105.0) 02/18/18 07:00 MCH 26.2 pg (25.0-35.0) 02/18/18 07:00 MCHC 30.3 g/dl (31.0-37.0) L 02/18/18 07:00 RDW 13.9 % (11.5-14.5) 02/18/18 07:00 Plt Count 471 10^3/uL (120.0-450.0) H 02/18/18 07:00 MPV 9.9 fl (7.0-11.0) 02/18/18 07:00 Gran % 60.5 % (50.0-68.0) 02/18/18 07:00 Lymph % (Auto) 25.7 % (22.0-35.0) 02/18/18 07:00 [place] % (Auto) 10.8 % (1.0-6.0) H 02/18/18 07:00 Eos % (Auto) 2.8 % (1.5-5.0) 02/18/18 07:00 Baso % (Auto) 0.2 % (0.0-3.0) 02/18/18 07:00 Gran # 3.25 (1.4-6.5) 02/18/18 07:00 Lymph # (Auto) 1.4 (1.2-3.4) 02/18/18 07:00 [place] # (Auto) 0.6 (0.1-0.6) 02/18/18 07:00 Eos # (Auto) 0.2 (0.0-0.7) 02/18/18 07:00 Baso # (Auto) 0.01 K/mm3 (0.0-2.0) 02/18/18 07:00 PT 13.8 SECONDS (9.4-12.5) H 02/16/18 18:11 INR 1.21 (0.93-1.08) H 02/16/18 18:11 APTT 34.2 Seconds (25.1-36.5) 02/16/18 18:11 Sodium 142 mmol/L (132-148) 02/18/18 06:20 Potassium 4.5 mmol/L (3.6-5.0) 02/18/18 06:20 Chloride 105 mmol/L (98-107) 02/18/18 06:20 Carbon Dioxide 26 mmol/L (21-33) 02/18/18 06:20 Anion Gap 16 (10-20) 02/18/18 06:20 BUN 7 mg/dL (7-21) 02/18/18 06:20 Creatinine 0.6 mg/dl (0.7-1.2) L 02/18/18 06:20 Est GFR ( Amer) > 60 02/18/18 06:20 Est GFR (Non-Af Amer) > 60 02/18/18 06:20 POC Glucose (mg/dL) 59 mg/dL (65-110) L 02/18/18 11:17 Random Glucose 84 mg/dL (70-110) 02/18/18 06:20 Insulin Level 9.4 uIU/mL (2.0-19.6) 02/17/18 06:45 Calcium 8.8 mg/dL (8.4-10.5) 02/18/18 06:20 Total Bilirubin 0.2 mg/dL (0.2-1.3) 02/18/18 06:20 AST 23 U/L (14-36) 02/18/18 06:20 ALT 25 U/L (7-56) 02/18/18 06:20 Alkaline Phosphatase 46 U/L (38-126) 02/18/18 06:20 Lactate Dehydrogenase 442 U/L (333-699) 02/16/18 18:11 Total Creatine Kinase 44 U/L (35-230) 02/16/18 18:11 Troponin I < 0.01 ng/mL 02/16/18 18:11 Total Protein 7.2 g/dL (5.8-8.3) 02/18/18 06:20 Albumin 4.0 g/dL (3.0-4.8) 02/18/18 06:20 Globulin 3.2 gm/dL 02/18/18 06:20 Albumin/Globulin Ratio 1.3 (1.1-1.8) 02/18/18 06:20 TSH 3rd Generation 3.09 mIU/mL (0.46-4.68) 02/17/18 06:40 Urine Color Light yellow (YELLOW) 02/16/18 18:08 Urine Appearance Sl cloudy (CLEAR) 02/16/18 18:08 Urine pH 7.5 (4.7-8.0) 02/16/18 18:08 Ur Specific [place] 1.010 (1.005-1.035) 02/16/18 18:08 Urine Protein Negative mg/dL (<30 mg/dL) 02/16/18 18:08 Urine Glucose (UA) Negative mg/dL (NEGATIVE) 02/16/18 18:08 Urine Ketones Negative mg/dL (NEGATIVE) 02/16/18 18:08 Urine Blood Moderate (NEGATIVE) H 02/16/18 18:08 Urine Nitrate Negative (NEGATIVE) 02/16/18 18:08 Urine Bilirubin Negative (NEGATIVE) 02/16/18 18:08 Urine Urobilinogen 0.2 E.U./dL (<1 E.U./dL) 02/16/18 18:08 Ur Leukocyte Esterase Small Henry/uL (NEGATIVE) H 02/16/18 18:08 Urine RBC 0 - 2 /hpf (0-2) 02/16/18 18:08 Urine WBC 1 - 3 /hpf (0-6) 02/16/18 18:08 Ur Epithelial Cells 3 - 4 /hpf (0-5) 02/16/18 18:08 Urine Bacteria Mod (NEG) 02/16/18 18:08 - Hospital Course Hospital Course: Patient is a 27 year old female with past medical history of mixed connective tissu e disease, SLE, pulmonary hypertension who presented to [facility] Ed with sudden onset of dizziness. Patient was evaluated in ED and fund to have positive laureano hallpike maneuver. Patient also noted to by hypoglycemic with blood glucose level of 30 in ED. One amp of D50 was given to patient with slight improvement in her bg. Head CT was preformed and showed no acute findings. Patient was admitted to the general medical floor for further medical evaluation and management of symptoms. Patient bg was monitored throughout her stay with range hypoglycemic values. Neurology was consulted and evalauted the patient to have BBPV and recommeded brain MRI which read as being unremarkable. Truck Mechanic Apprentice was consulted and evaluated the patient to have functional hypoglycemia with minimal suspicion for other etiologies. Endocrinology recommended patient have further work up for etiology of hypoglycemia, as well as adhere to multiple small meal diet with high protein. Trash Collector Truck Driver was consulted and spoke with patient. Patient was advised to follow up with her neurologist, business services specialist sales, and primary care physician upon discharge. Medications were reconciled and patient was educated on hypoglycemic symptoms and steps to take during hypoglycemic episodes. Patient was in understanding and agreeable with discharge and instructions. - Date & Time of H&P Date of H&P: 02/17/18 Time of H&P: 05:13 Discharge Exam - Head Exam Head Exam: ATRAUMATIC, NORMAL INSPECTION, NORMOCEPHALIC - Eye Exam Eye Exam: EOMI, PERRL - Neck Exam Neck exam: Full Rom - Respiratory Exam Respiratory Exam: Clear to PA & Lateral, NORMAL BREATHING PATTERN. absent: Rales, Rhonchi, Wheezes - Cardiovascular Exam Cardiovascular Exam: REGULAR RHYTHM, +S1, +S2 - GI/Abdominal Exam GI & Abdominal Exam: Normal Bowel Sounds, Soft. absent: Tenderness - Extremities Exam Extremities exam: normal inspection - Neurological Exam Neurological exam: Alert, CN II-XII Intact, Normal Gait, Oriented x3 - Psychiatric Exam Psychiatric exam: Normal Affect, Normal Mood - Skin Skin Exam: Dry, Warm Discharge Plan - Follow Up Plan Condition: FAIR Disposition: HOME/ ROUTINE Instructions: Planning for a Balanced Diet, Vertigo (a Type of Dizziness) (DC) , Low Blood Sugar, Adult (DC), Low Blood Sugar in People Without Diabetes, Diabetic Meal Planning , Urinary Tract Infection in Women (DC) Additional Instructions: Follow up with Primary care physician within 1 to 2 weeks upon discharge Follow up with Neurologist withing 1 to 2 weeks upon discharge Follow up with business services specialist sales within 1 to 2 weeks upon discharge Abide by diet prescribed to you from business services specialist sales, with frequent 6 meal option, high protein Make sure you have glucose tabs or high sugar candy on your person at all times in case of emergency If you expereicne return or worsening of your presenting symptoms go the nearest ED Referrals: Morales Tran MD [Primary Care Provider] -
[2018-02-18 12:29] LABS: PROLACTIN 23.9 ng/mL (3.0-18.9)
[2018-02-18 13:27] LABS: C-PEPTIDE 1.76 ng/mL (0.80-3.85)
--- NOTE | 2018-02-20 09:37 | PN ---
DATE: 02/18/2018 ENDOCRINOLOGY FOLLOWUP NOTE LOCATION: Room 578. SUBJECTIVE: This is a 27-year-old female presenting here with sudden onset of dizziness and lightheadedness with supervening symptomatic hypoglycemia and associated neuroglycopenic and hyper-adrenergic manifestations her glucose levels dropped to 69 mg/dL this morning significant for the so called functional hypoglycemia, especially noted postprandial insult with history of hyperinsulinemia and supervening marked hypoglycemia. LABORATORY DATA: Her latest chemistries showed a BUN of 7, sodium 142, potassium 4.5, chloride 105, CO2 26, glucose 84 and creatinine 0.6. ASSESSMENT: This is a 27-year-old female with symptomatic hypoglycemic, hyper-adrenergic manifestation related to the so called functional hypoglycemia as noted. Quite remote and rare so called insulin excess syndrome such as insulinoma or paraganglioma or other more rare neuroendocrine tumor at this time. We also exclude any autoimmune endocrinopathy especially if the patient has mixed connective tissue diseases also against very rare are the possible autoimmune hypoadrenalism or adrenal insufficiency, which should also cause hypoglycemic episodes as noted. PLAN OF MANAGEMENT: As discussed with the patient, plan is to move to therapeutic need to initiate the high protein with fixed frequent small feedings medium portions would be the best therapeutic option at this time. nutritional status. Continue current management for the management of functional hypoglycemia will be avoidance of concentrated sweets and high carb portions cannot, but be overemphasized as the higher the carb content and the higher the concentrated sweets being taken in by the patient, this will cause more hyperinsulinemic stages at this point in time. Because of the patient's very limited food choices because of her underlying mixed connective tissue disease and multiple GI related adverse effects to food selection, she has to limit her food intake to just fish and vegetables and fruits at this time. She has already avoided animal sources such as meat, such as pork and steak and chicken at this time. However, I mentioned the fact that she really needs to at least modify her protein intake as this is the best therapeutic option at this time for nutritional therapy. She will have a high protein fixed frequent small feedings at this time, whether protein bars or protein shakes or fish selections and chicken or poultry with eating pork chops and lean steak at this point. The patient will try her very best to resume some kind of leap especially pork, chicken in her diet selection. We have no massive medications for hypoglycemia except the nutritional therapy as mentioned with a high protein diet as noted. We will clear her for discharge from the endocrine view point, but we will check the reports of her comprehensive hormonal profile, which was sent out such as a serum cortisol, ACTH, plasma free metanephrines and I will repeat thyroid studies and also a serum gastrin level and serum prolactin level as ordered. This will exclude very rare endocrine excess syndromes and we are still awaiting also get the reports of the free peptide and the serum insulin and proinsulin levels as ordered. The aforementioned comprehensive hormonal testing undertaken will confirm and undertake the presence of any underlying neuroendocrine tumors causing hypoglycemia. We will follow up with you. Faye Vang MD
[2018-02-21 04:39] LABS: GASTRIN 25 pg/mL (<=100)
== END 2018-02-18 14:27 | disposition home or self-care (01) | DRG 641 ==
LOC: ED 17:07 → ERH 23:14 → 5RSO 02-17 02:17 → OBSVTOIN 02-17 15:01
PROVIDERS: ADMIT Internal Medicine; ATTEND Internal Medicine
DX: E16.2 Hypoglycemia, unspecified (principal); M35.1 Other overlap syndromes; N39.0 Urinary tract infection, site not specified; I27.20 Pulmonary hypertension, unspecified; I73.00 Raynaud's syndrome without gangrene; K21.9 Gastro-esophageal reflux disease without esophagitis; M32.9 Systemic lupus erythematosus, unspecified; M34.9 Systemic sclerosis, unspecified; Z82.49 Family history of ischemic heart disease and other diseases of the circulatory system; Z83.3 Family history of diabetes mellitus; Z87.01 Personal history of pneumonia (recurrent); Z90.49 Acquired absence of other specified parts of digestive tract

== ENCOUNTER 2018-12-16 10:13 | Outpatient (CLI) | payer OTHER | END 2018-12-16 10:14 | disposition home or self-care (01) | LOC: LAB 10:13 ==

== ENCOUNTER 2019-03-17 10:08 | Outpatient (CLI) | payer OTHER | END 2019-03-17 10:09 | disposition home or self-care (01) | LOC: LAB 10:08 ==